=== PATIENT | female | born 1970 | race Hispanic/Latino ===

== ENCOUNTER → 2018-04-18 | Outpatient (CLI) | payer OTHER ==
--- NOTE | 2018-04-18 16:18 | Diagnostic Imaging Report ---
EXAM: Renal Ultrasound and ultrasound of pelvis Limited INDICATION: HEMATURIA /RECURRENT UTIS COMPARISON: None TECHNIQUE: Transverse and longitudinal images of the kidneys and bladder were obtained. FINDINGS: Right Kidney: Length: 11.0 cm Appearance: Normal echogenicity. Collecting system: No hydronephrosis Stones: None Cyst/Mass: None Left Kidney: Length: 11.1 cm Appearance: Normal echogenicity. Collecting system: No hydronephrosis Stones: None Cyst/Mass: None Bladder: Unremarkable. Urinary bladder wall thickness estimated at 5 mm. Bilateral jets observed. No post void residual. Incidental note is made of increased echogenicity of the hepatic parenchyma suggestive of steatosis. IMPRESSION: Normal ultrasound of the kidneys and urinary bladder. Hepatic steatosis. Signed by: Dr. Rashad Mcdaniel M.D. on 04/18/2018 4:14 PM
== END ==
LOC: US 15:21
PROVIDERS: ATTEND Internal Medicine
DX: N39.0 Urinary tract infection, site not specified (principal); R31.9 Hematuria, unspecified; K76.0 Fatty (change of) liver, not elsewhere classified
CPT/HCPCS: 76770; 76857

== ENCOUNTER → 2018-06-10 | Outpatient (CLI) | payer OTHER | LOC: MAMMO 14:27 | PROVIDERS: ATTEND Internal Medicine | DX: Z12.31 Encounter for screening mammogram for malignant neoplasm of breast (principal) | CPT/HCPCS: 77067 ==

== ENCOUNTER → 2018-07-29 | Outpatient (CLI) | payer OTHER ==
--- NOTE | 2018-07-29 17:22 | Diagnostic Imaging Report ---
Exam: Left knee 3 views History: Pain Comparison: None. Findings: No fracture or malalignment. Joint spaces preserved. No abnormal soft tissue calcification or soft tissue defect. Impression: No acute osseous abnormality Signed by: Dr. Jeferson Tang M.D. on 07/29/2018 5:18 PM
== END ==
LOC: RAD 16:36
PROVIDERS: ATTEND Internal Medicine
DX: M17.12 Unilateral primary osteoarthritis, left knee (principal)

== ENCOUNTER → 2019-06-11 | Outpatient (CLI) | payer OTHER ==
--- NOTE | 2019-06-19 08:49 | Diagnostic Imaging Report ---
#[id number] - MGSCRBIL #BILATERAL DIGITAL SCREENING MAMMOGRAM WITH CAD: 06/11/2019 CLINICAL: Routine screening. Comparison is made to exam dated: 06/10/2018 mammogram - [facility]. Current study contains 7 films. The tissue of both breasts is heterogeneously dense. This may lower the sensitivity of mammography. Current study was also evaluated with a Computer Aided Detection (CAD) system. Benign appearing microcalcifications, left breast. No significant masses, calcifications, or other findings are seen in either breast. IMPRESSION: BENIGN There is no mammographic evidence of malignancy. A 1 year screening mammogram is recommended. The patient will be notified by letter of the results. HERNÁN MENDOZA M.D. ct/penrad:06/18/2019 13:10:28 Reliability Technician: Ghazal WETZEL)(Marianna), [facility] letter sent: Normal Exam Mammogram BI-RADS: 2 Benign
== END ==
LOC: MAMMO 08:47
PROVIDERS: ATTEND Obstetrics & Gynecology
DX: Z12.31 Encounter for screening mammogram for malignant neoplasm of breast (principal)
CPT/HCPCS: 77067

== ENCOUNTER → 2020-01-04 | Outpatient (CLI) | payer OTHER ==
--- NOTE | 2020-01-04 16:50 | Diagnostic Imaging Report ---
Chest, PA and lateral. History: Hypertension. Comparison: None available. Discussion: The cardiomediastinal silhouette and pulmonary vasculature are within normal limits. The lungs are clear without evidence of consolidation or effusion. There are no acute osseous abnormalities. IMPRESSION: No radiographic evidence of acute cardiopulmonary abnormality. Signed by: Christian Young MD on 01/04/2020 4:47 PM
== END ==
LOC: RAD 16:10
PROVIDERS: ATTEND Internal Medicine
DX: I10 Essential (primary) hypertension (principal)
CPT/HCPCS: 71046

== ENCOUNTER 2020-04-03 12:01 | Emergency (ER) | payer OTHER ==
[~2020-04-03] VITALS: Ht 180.3 cm; Wt 88.0 kg
--- OUTSIDE RECORDS SUMMARY | 2020-04-03 12:04 | XMS REPORT ---
Author Author [facility] t Organization [facility] Address [address] [place] [id number] Phone Unavailable Care Team Providers Care Criminal Judge Name Role Phone ARASH CHAPA Attphys Unavailable BILLIE GAMBINO Attphys Unavailable Problems Condition Name Condition Details Condition Category Status Onset Date Resolution Date Last Treatment Date Treating Clinician Comments Source Influenza vaccination declined by patient Influenza va ccination declined by patient Disease Active 2016-08-16 00:00:00 [facility] Impaired fasting blood sugar Impaired fasting blood sugar Disease Active 2016-05-09 00:00:00 [facility] Fatty liver Fatty liver Disease Active 2014-06-22 00:00:00 [facility] GERD (gastroesophageal reflux disease) GERD (gastroesophagea l reflux disease) Disease Active 2014-06-22 00:00:00 [facility] Diverticulosis Diverticulosis Disease Active 2014-06-22 00:00:00 [facility] Essential hypertension Essential hypertension Disease Active 2008-11-16 00:00:00 [facility] Allergies, Adverse Reactions, Alerts Allergy Name Allergy Type Status Severity Reaction(s) Onset Date Inacti ve Date Treating Clinician Comments Source Nitrofurantoin Propensity to adverse reactions to drug Active 2014-05-27 00:00:[address] [facility] Captopril Propensity to adverse reactions to drug Active Cough 2008-11-16 00:00:00 [facility] Penicillins Propensity to adverse reactions to drug Active Rash 2007-06-17 00:00:00 [facility] Family History Family Member Diagnosis Comments Start Date Stop Date Source Natural father Hypertension [facility] Social History Social Habit Start Date Stop Date Quantity Comments Source Sex Assigned At [facility] Alcohol intake 2019-04-08 00:00:00 2019-04-08 00:00:00 [facility] History SDOH Food Worry 2017-04-17 00:00:00 2017-04-17 00:00:[address] [facility] History SDOH Food Scarcity 2017-04-17 00:00:00 2017-04-17 00:00:[address] [facility] Smoking Status Start Date Stop Date Source Never smoker [facility] Medications Ordered Medication Name Filled Medication Name Start Date Stop Da te Current Medication? Ordering Clinician Indication Dosage Frequency Signature (SIG) Comments Components Source fluconazole (DIFLUCAN) 150 mg tablet 2017-08-01 00:00:00 Yes Dysuria 150mg Take 1 tablet by mouth weekly. [facility] nystatin (MYCOSTATIN) 100,000 unit/gram ointment 2017-08-01 00:00:00 Yes Dysuria Q.5D Apply to affected area [address] [facility] losartan (COZAAR) 25 mg tablet 2017-06-12 00:00:00 Yes Essential hypertension with goal blood pressure less than 140/90 25mg QD Take 1 tablet by mouth daily. [facility] metoprolol tartrate (LOPRESSOR) 25 mg tablet 2017-06-12 00:0 0:00 Yes Essential hypertension with goal blood pressure less than 140/90 25mg Q.5D Take 1 tablet by mouth [address] [facility] Procedures This patient has no known procedures. Plan of Care Planned Activity Planned Date Details Comments Source Future Scheduled Test 2020-05-16 00:00:00 Cervical Cancer Sc rn (3 Yrs) [code = Cervical Cancer Scrn (3 Yrs)] [facility] Future Scheduled Test 2017-09-26 00:00:00 Breast Cancer Scrn (Yearly) [code = Breast Cancer Scrn (Yearly)] [facility] Encounters Start Date/Time End Date/Time Encounter Type Admission Type [facility] Facility Care Department Encounter ID Source 2017-11-06 00:00:00 2017-11-06 00:00:00 Outpatient [facility] [id number] [facility] 2017-08-20 00:00:00 2017-08-20 00:00:00 Outpatient [facility] [id number] [facility] 2017-08-01 15:46:47 2017-08-01 15:46:47 Outpatient [facility] [id number] [facility] 2017-06-12 08:25:05 2017-06-12 08:25:05 Outpatient [facility] [id number] [facility] 2017-05-16 14:58:34 2017-05-16 14:58:34 Outpatient [facility] [id number] [facility] 2017-05-03 08:51:48 2017-05-03 08:51:48 Outpatient [facility] [id number] [facility] 2017-05-02 00:00:00 2017-05-02 00:00:00 Outpatient [facility] [id number] [facility] 2017-04-23 00:00:00 2017-04-23 00:00:00 Outpatient [facility] [id number] [facility] 2017-04-17 14:00:06 2017-04-17 14:00:06 Outpatient [facility] [id number] [facility] Results Test Description Test Time Test Comments Results Result Comments Source CHEST 2 VIEWS 2020-01-04 16:47:00 [place] [address] Patient Name: SULTANA ADAMS MR #: [id number] : 1970 Age/Sex: 49/F Req #: [id number] Adm Physician: Ordered by: ARASH CHAPA MD Report #: [id number] Location: [facility] Room/Bed: Procedure: [id number] DX/CHEST 2 VIEWS Exam Date: 01/04/20 Exam Time: 1636 REPORT STATUS: Signed Chest, PA and lateral. History: Hypertension. Comparison: None available. Discussion: The cardiomediastinal silhouette and pulmonary vasculature are within normal limits. The lungs are clear without evidence of consolidation or effusion. There are no acute osseous abnormalities. IMPRESSION: No radiographic evidence of acute cardiopulmonary abnormality. Signed by: Christian Balbuena MD on 01/04/2020 4:47 PM Dictated By: CHRISTIAN BALBUENA MD Transcribed By: MILLIE on 01/04/201646 COPY TO: ARASH CHAPA MD MAMMOGRAPHY DIGITAL SCR BILAT 2019-06-11 09:14:00 [facility] [address] [place] [address] Patient Name: SULTANA ADAMS MR #: [id number] : 1970 Age/Sex: 48/F Req #: [id number] Adm Physician: Ordered by: JANNIE GAMBINO MD Report #: [id number] Location: MAMMO Room/Bed: Procedure: [id number] MG/MAMMOGRAPHY DIGITAL SCR BILAT Exam Date: 06/11/19 Exam Time: 906 REPORT STATUS: Signed #[id number] - MGSCRBIL #BILATERAL DIGITAL SCREENING MAMMOGRAM WITH CAD: 06/11/2019 CLINICAL: Routine screening. Comparison is made to exam dated: 06/10/2018 mammogram - [facility]. Current study contains 7 films. The tissue of both breasts is heterogeneously dense. This may lower the sensitivity of mammography. Current study was also evaluated with a Computer Aided Detection (CAD) system. Benign appearing microcalcifications, left breast. No significant masses, calcifications, or other findings are seen in either breast. IMPRESSION: BENIGN There is no mammographic evidence of malignancy. A 1 year screening mammogram is recommended. The patient will be notified by letter of the results. HERNÁN MENDOZA M.D. ct/penrad:06/18/2019 13:10:28 Oreman: Ghazal WETZEL)(Marianna), [facility] letter sent: Normal Exam Mammogram BI-RADS: 2 Benign Dictated By: HERNÁN MENDOZA MD 1310 Transcribed By: JUAN on 06/18/191309 COPY TO: BILLIE GAMBINO MD KNEE LEFT THREE VIEWS 2018-07-29 17:18:00 [place] [address] Patient Name: SULTANA ADAMS MR #: [id number] : 1970 Age/Sex: 47/F Req #: [id number] Adm Physician: Ordered by: ARASH CHAPA MD Report #: [id number] Location: RAD Room/Bed: Procedure: [id number] DX/KNEE LEFT THREE VIEWS Exam Date: Exam Time: REPORT STATUS: Signed Exam: Left knee 3 views History: Pain Comparison: None. Findings: No fracture or malalignment. Joint spaces preserved. No abnormal soft tissue calcification or soft tissue defect. Impression: No acute osseous abnormality Signed by: Dr. Teddy Ta M.D. on 07/29/2018 5:18 PM Dictated By: TEDDY TA MD 17 Transcribed By: MILLIE on 07/29/181717 COPY TO: ARASH CHAPA MD MAMMOGRAPHY DIGITAL SCR BILAT 2018-06-10 15:44:00 [place] [address] Patient Name: SULTANA ADAMS MR #: [id number] : 1970 Age/Sex: 47/F Req #: [id number] Adm Physician: Ordered by: ARASH CHAPA MD Report #: [id number] Location: MAMMO Room/Bed: Procedure: MG/MAMMOGRAPHY DIGITAL SCR BILAT Exam Date: 06/10/18 Exam Time: 1515 REPORT STATUS: Signed #[id number] - MGSCRBIL #BILATERAL DIGITAL SCREENING MAMMOGRAM WITH CAD: 06/10/2018 CLINICAL: Routine screening. No prior exams were available for comparison. Current study contains 5 films. The tissue of both breasts is heterogeneously dense. This may lower the sensitivity of mammography. Current study was also evaluated with a Computer Aided Detection (CAD) system. There is a benign calcification in the left breast. No significant masses, calcifications, or other findings are seen in either breast. IMPRESSION: BENIGN There is no mammographic evidence of malignancy. A 1 year screening mammogram is recommended. The patient will be notified by letter of the results. Dhruv cortés/juan:06/23/2018 11:51:05 Oreman: Ghazal BARRON(R)(M), [facility] letter sent: Normal Exam Mammogram BI-RADS: 2 Benign Dictated By: DHRUV HOSKINS DO 1151 Transcribed By: JUAN on 06/23/18 1151 COPY TO: ARASH CHAPA MD PELVIC (NON OB) HUGHES OR F/U 2018-04-18 16:11:00 [place] [address] Patient Name: SULTANA ADAMS MR #: [id number] : 1970 Age/Sex: 47/F Req #: [id number] Adm Physician: Ordered by: ARASH CHAPA MD Report #: [id number] Location: US Room/Bed: Procedure: [id number] US/US PELVIC (NON OB) HUGHES OR F/U Exam Date: Exam Time: REPORT STATUS: Signed EXAM: Renal Ultrasound and ultrasound of pelvis Limited INDICATION: HEMATURIA /RECURRENT UTIS COMPARISON: None TECHNIQUE: Transverse and longitudinal images of the kidneys and bladder were obtained. FINDINGS: Right Kidney: Length: 11.0 cm Appearance: Normal echogenicity. Collecting system: No hydronephrosis Stones: None Cyst/Mass: None Left Kidney: Length: 11.1 cm Appearance: Normal echogenicity. Collecting system: No hydronephrosis Stones: None Cyst/Mass: None Bladder: Unremarkable. Urinary bladder wall thickness estimated at 5 mm. Bilateral jets observed. No post void residual. Incidental note is made of increased echogenicity of the hepatic parenchyma suggestive of steatosis. IMPRESSION: Normal ultrasound of the kidneys and urinary bladder. Hepatic steatosis. Signed by: Dr. Rashad Sanabria M.D. on 04/18/2018 4:14 PM Dictated By: DEMETRICE SANABRIA MD, MD 13 Transcribed By: MILLIE on 04/18/181613 COPY TO: ARASH CHAPA MD RENAL RETROPERITONEAL COMP 2018-04-18 16:11:00 [place] [address] Patient Name: SULTANA ADAMS MR #: [id number] : 1970 Age/Sex: 47/F Req #: [id number] Adm Physician: Ordered by: ARASH CHAPA MD Report #: [id number] Location: US Room/Bed: Procedure: [id number] US/US RENAL RETROPERITONEAL COMP Exam Date: Exam Time: REPORT STATUS: Signed EXAM: Renal Ultrasound and ultrasound of pelvis Limited INDICATION: HEMATURIA /RECURRENT UTIS COMPARISON: None TECHNIQUE: Transverse and longitudinal images of the kidneys and bladder were obtained. FINDINGS: Right Kidney: Length: 11.0 cm Appearance: Normal echogenicity. Collecting system: No hydronephrosis Stones: None Cyst/Mass: None Left Kidney: Length: 11.1 cm Appearance: Normal echogenicity. Collecting system: No hydronephrosis Stones: None Cyst/Mass: None Bladder: Unremarkable. Urinary bladder wall thickness estimated at 5 mm. Bilateral jets observed. No post void residual. Incidental note is made of increased echogenicity of the hepatic parenchyma suggestive of steatosis. IMPRESSION: Normal ultrasound of the kidneys and urinary bladder. Hepatic steatosis. Signed by: Dr. Rashad Sanabria M.D. on 04/18/2018 4:14 PM Dictated By: DEMETRICE SANABRIA MD, MD 2787 Transcribed By: MILLIE on 04/18/182 COPY TO: ARASH CHAPA MD
--- OUTSIDE RECORDS SUMMARY | 2020-04-03 12:04 | XMS REPORT | Clinical Summary ---
Author Author [facility] Organization [facility] Address Unknown Phone Unavailable Care Team Providers Care Hot Water Heater Installer Name Role Phone PCP Unavailable Allergies Comments Active Allergy Reactions Severity Noted Date Captopril Cough Medium 11/16/2008 Chest pain Nitrofurantoin 05/27/2014 Penicillins Rash Low 06/17/2007 Medications End Date Status Medication Sig Dispensed Refills Start Date Active losartan (COZAAR) 25 mg Take 1 tablet 90 tablet 1 tabletIndications: by mouth 7 Essential hypertension daily. with goal blood pressure less than 140/90 Active metoprolol tartrate Take 1 tablet 180 tablet 1 (LOPRESSOR) 25 mg by mouth 2 7 tabletIndications: times daily. Essential hypertension with goal blood pressure less than 140/90 Active fluconazole (DIFLUCAN) Take 1 tablet 2 tablet 0 0 150 mg tabletIndications: by mouth 7 Dysuria weekly. Active nystatin (MYCOSTATIN) Apply to 30 g 0 07/06 100,000 unit/gram affected area 7 ointmentIndications: 2 times Dysuria daily. Active Problems Problem Noted Date Influenza vaccination declined by patient 08/16/2016 Impaired fasting blood sugar 05/09/2016 Fatty liver 06/22/2014 GERD (gastroesophageal reflux disease) 06/22/2014 Diverticulosis 06/22/2014 Essential hypertension 11/16/2008 Immunizations Name Administration Dates Next Due Influenza Vaccine 11/30/2016 (Deferred: Sergoi nt Refused) Tdap Tetanus, diphtheria, 06/26/2013 (Deferred: Tere ent Refused) acellular pertussis Vaccine Family History Medical History Relation Name Comments Hypertension Father Relation Name Status Comments Brother Alive Father Alive Maternal Grandfather Maternal Grandmother Mother Alive Paternal Grandfather Paternal Grandmother Sister Alive x2 Social History Date Tobacco Use Types Packs/Day Years Used Never Smoker Smokeless Tobacco: Never Used Tobacco Cessation: Counseling Given: No Drinks/Week oz/Week Comments Alcohol Use No Food Insecurity Answer Date Recorded Within the past 12 months, you worried that your Never kaila e 04/17/2017 food would run out before you got money to buy more. Within the past 12 months, the food you bought Never true 04/17/2017 just didn't last and you didn't have mo nikhil to get more. Sex Assigned at Date Recorded Not on file Industry Job Start Date Occupation Not on file Not on file Not on file Travel End Travel History Travel Start No recent travel history available. Last Filed Vital Signs Not on file Plan of Treatment Health Maintenance Due Date Last Done Comments Breast Cancer Scrn 09/26/2017 09/26/2016, 015, 07/22/2014, (Yearly) Additional history exists Cervical Cancer Scrn (3 05/16/2020 05/16/2017, , 02/05/2013 Yrs) Goals Goal Patient Associated Recent Progress Patient-Stat Aut hor Goal Type Problems ed? Decrease soda or juice intake Diet No Arelis Hoskins LD Reduce sugar intake Diet No Arelis Hoskins LD Have 3 meals a day Diet No Arelis Hoskins LD Note: Eat 3 well balanced, portion controlled meals including all food groups daily Increase physical activity Lifestyle No Arelis Cruz se, LD Results Not on fileafter 04/03/2019 Insurance Type Payer Benefit Subscriber ID Effective Phone Address Plan / Dates Group NXTMPLACE VEGA xxxxxxxxxx 2015-P [phone] [facility] [address] [place] [address] [facility] SELF-PAY SELF-PAY xxxxx 2018- [phone] [id number] [place] [address] Guarantor Name Account Relation to Date of Phone Tono azul Address Type Patient BRYAN GIRALDOAULISESO Personal/F Head of 06/30/1966 [address] [facility] (Home) [place], [place] [address] (Self)
[2020-04-03] MEDS ORDERED: DONNATAL/LIDOCAINE/MAALOX 30 ML SUSP PO ONE (12:30)
--- NOTE | 2020-04-03 12:39 | Emergency Department Note ---
History of Present Illnes History of Present Illness Chief Complaint: Abdominal Complaints History of Present Illness This is a 49 year old female . Arrival Mode: Car Additional Treatment ASH COLLECTOR: omeprazole History limited by: language barrier Top Spotter Required: Yes Onset (how long ago): day(s) (1) Location: epigastric Quality: pressure like Radiation: non-radiation Severity: moderate Onset quality: gradual Timing of current episode: intermittent Progression: worsening Chronicity: new Relieving factors: none Exacerbating factors: none Associated symptoms: denies other symptoms Treatments prior to arrival: other (prilosec and antacids with some relief) Risk factors: htn diabetes Past Medical/Family History Physician Review I have reviewed the patient's past medical and family history. Any updates have been documented here. Past Medical History Recent Fever: No Clinical Suspicion of Infectio: No New/Unexplained Change in Ment: No Past Medical History: Hypertension, Diabetes, Hypothyroidism Other Medical History: GERD Past Surgical History: (times 3) Social History Smoking Cessation: Never Smoker Alcohol Use: Occasional Any Illegal Drug Use: No TB Exposure/Symptoms: No Physically hurt or threatened: No Other Any Pre-Existing Lines (PICC,: No Is patient up to date on immun: No Review of Systems Review of Systems Constitutional: no symptoms EENTM: no symptoms Cardiovascular: no symptoms Respiratory: no symptoms Gastrointestinal: as per HPI, other (denies black or bloody stools) Genitourinary: no symptoms Musculoskeletal: no symptoms Neurological: no symptoms Psychological: no symptoms Endocrine: no symptoms Hematological/Lymphatic: no symptoms Review of other systems All other systems reviewed and negative. Physical Exam Related Data Allergies: Coded Allergies: Penicillins (Verified Allergy, Intermediate, rash/hives, 04/03/20) Vital signs reviewed: Yes Physical Exam CONSTITUTIONAL Constitutional: well-developed, well-nourished, obese HENT HENT: normocephalic, atraumatic EYES Eyes: PERRL, conjunctivae normal, EOM normal NECK Neck: ROM normal, supple PULMONARY Pulmonary: effort normal, breath sounds normal CARDIOVASCULAR Cardiovascular: regular rhythm, heart sounds normal, capillary refill normal, tachycardia GASTROINTESTINAL Abdominal: soft, tender (epigastric area) GENITOURINARY Genitourinary: exam deferred SKIN Skin: warm, dry, erythema MUSCULOSKELETAL Musculoskeletal: ROM normal, edema NEUROLOGICAL Neurological: alert, oriented x 3, DTRs normal, no gross motor or sensory defi cits PSYCHOLOGICAL Psychological: mood/affect normal, behavior normal, thought content normal, judgement normal Results Laboratory Laboratory glucose 186 cardiac markeers WNL. CBC WNL. Preg Neg and UA trace blood ow wnl Lab results reviewed: Yes Diagnostics Tests Diagnostic test(s) reviewed: Yes Diagnostic comments ekg sinus tach 108 t waves inverted in inferior leads and V2 V3 Critical Care Time Subsequent provider I assumed direction of critical care for this patient from another provider of my specialty. Assessment & Plan Reassessment Reassessment time: 13:05 (feeling better after GI cocktail. Heartrate has decreased to 95/minute. pt admits to being a little nervious in the ED. Translation from colombian to indonesian by me Dr. Bazzi) Reassessment pt admits to being non compliant with her omeprazole . explained need tp take daily as prescribed. all epigastric pain resolved at 1:12 PM Assessment & Plan Final Impression: (1) GASTRO-ESOPHAGEAL REFLUX DISEASE WITHOUT ESOPHAGITIS Assessment & Plan take medications as prescribed and follow with your doctor in 48 hours return for any further problems Depart Disposition: HOME, SELF-CARE Medications in the ED gi cocktail LENI BAZZI MD April 03, 2020 12:39
[2020-04-03] MEDS ORDERED: LIDOCAINE VISC 2% SOLN 15 ML UDC ONE (12:52)
[2020-04-03] MEDS ORDERED: BELLADONNA ALK/PHENOBARBITAL 5 ML UDC ONE (12:52)
[2020-04-03] MEDS ORDERED: MAGNESIUM/ALUMINUM/SIMETHICONE 30 ML UDC ONE (12:53)
[2020-04-03] MEDS ORDERED: METOPROLOL SUCC50 MG PO (13:36)
[2020-04-03] MEDS ORDERED: LEVOTHYROXINE50 MCG PO (13:36)
[2020-04-03] MEDS ORDERED: METFORMIN HCL1000 MG (13:36)
[2020-04-03] MEDS ORDERED: SIMVASTATIN20 MG PO (13:36)
[2020-04-03] MEDS ORDERED: LOSARTAN POTASS25 MG (13:36)
[2020-04-03] MEDS ORDERED: OMEPRAZOLE40 MG (13:36)
[2020-04-03 13:44] VITALS: BP 164/91
--- NOTE | 2020-04-03 13:46 | NUR ---
cultural link optical technician # [id number] used for triage [facility] optical technician # [id number] used for discharge
== END 2020-04-03 13:43 | disposition home or self-care (01) ==
LOC: FSED 12:01
DX: R10.13 Epigastric pain (principal); R14.2 Eructation; K21.9 Gastro-esophageal reflux disease without esophagitis; I10 Essential (primary) hypertension; E11.9 Type 2 diabetes mellitus without complications; E03.9 Hypothyroidism, unspecified
CPT/HCPCS: 80048; 80076; 81003; 81025; 82553; 84484; 85025; 93005; 99283

== ENCOUNTER 2021-05-24 18:47 | Emergency (ER) | payer OTHER ==
[~2021-05-24] VITALS: Ht 180.3 cm; Wt 88.0 kg
[~2021-05-24 18:47] MED LIST: LEVOTHYROXINE50 MCG PO; LOSARTAN POTASS25 MG; METFORMIN HCL1000 MG; METOPROLOL SUCC50 MG PO; OMEPRAZOLE40 MG; SIMVASTATIN20 MG PO
== END 2021-05-24 20:30 | disposition home or self-care (01) ==
LOC: FSED 20:29
DX: R07.89 Other chest pain (principal); R00.2 Palpitations; I10 Essential (primary) hypertension; E11.65 Type 2 diabetes mellitus with hyperglycemia; E03.9 Hypothyroidism, unspecified; F41.9 Anxiety disorder, unspecified; K21.9 Gastro-esophageal reflux disease without esophagitis
CPT/HCPCS: 71046; 80053; 82553; 84484; 85025; 99283

== ENCOUNTER 2021-10-07 21:30 | Emergency (ER) | payer OTHER ==
[~2021-10-07] VITALS: Ht 162.6 cm; Wt 89.8 kg
[2021-10-07] MEDS ORDERED: KETOROLAC TROMETHAMINE 30 MG/ML VIAL IV STA (22:40)
[2021-10-07] MEDS ORDERED: FAMOTIDINE 20 MG/2 ML VIAL IV STA (22:40)
[2021-10-07] MEDS ORDERED: SODIUM CHLORIDE 0.9% 1000ML 1,000 ML IV SCH (22:45)
[2021-10-07] MEDS ORDERED: KETOROLAC TROMETHAMINE 30 MG/ML VIAL ONE (22:57)
[2021-10-07] MEDS ORDERED: SODIUM CHLORIDE 0.9% 1000ML 1,000 ML ONE (22:58)
[2021-10-07] MEDS ORDERED: FAMOTIDINE 20 MG/2 ML VIAL IV ONE (22:58)
[2021-10-07] MEDS ORDERED: SODIUM CHLORIDE 0.9% 50ML 50 ML ONE (23:06)
[2021-10-07] MEDS ORDERED: IOPAMIDOL 370 MG/ML 200 ML INFUS..BTL INJ ONE (23:06)
[2021-10-08 00:08] VITALS: BP 150/92
== END 2021-10-08 00:08 | disposition home or self-care (01) ==
LOC: FSED 21:52
DX: R10.11 Right upper quadrant pain (principal); K21.9 Gastro-esophageal reflux disease without esophagitis; E03.9 Hypothyroidism, unspecified; I10 Essential (primary) hypertension; E11.65 Type 2 diabetes mellitus with hyperglycemia; F41.9 Anxiety disorder, unspecified; R16.0 Hepatomegaly, not elsewhere classified; K76.0 Fatty (change of) liver, not elsewhere classified
CPT/HCPCS: 74177; 80048; 80076; 81003; 81025; 85025; 96374; 96376; 99284; J1885; J7030; Q9967

== ENCOUNTER 2021-11-01 21:19 | Emergency (ER) | payer OTHER ==
[~2021-11-01] VITALS: Ht 162.6 cm; Wt 89.8 kg
[2021-11-01] MEDS ORDERED: KETOROLAC TROMETHAMINE 30 MG/ML VIAL IV STA (21:49)
[2021-11-01] MEDS ORDERED: ACETAMINOPHEN 325 MG TAB PO ONE (22:00)
[2021-11-01] MEDS ORDERED: IOPAMIDOL 370 MG/ML 200 ML INFUS..BTL INJ ONE (22:26)
[2021-11-01] MEDS ORDERED: SODIUM CHLORIDE 0.9% 50ML 50 ML ONE (22:26)
[2021-11-01] MEDS ORDERED: ACETAMINOPHEN 325 MG TAB ONE (22:34)
[2021-11-01] MEDS ORDERED: KETOROLAC TROMETHAMINE 30 MG/ML VIAL ONE (22:35)
[2021-11-01] MEDS ORDERED: DICYCLOMINE HCL20 MG PO (23:35)
[2021-11-01 23:53] VITALS: BP 152/95
== END 2021-11-01 23:53 | disposition home or self-care (01) ==
LOC: FSED 21:22
DX: R10.31 Right lower quadrant pain (principal); R11.0 Nausea; I10 Essential (primary) hypertension; E11.9 Type 2 diabetes mellitus without complications; E03.9 Hypothyroidism, unspecified; F41.9 Anxiety disorder, unspecified; K21.9 Gastro-esophageal reflux disease without esophagitis
CPT/HCPCS: 74177; 99283; J1885; Q9967

== ENCOUNTER 2022-07-25 03:49 | Emergency (ER) | payer OTHER ==
[~2022-07-25] VITALS: Ht 162.6 cm; Wt 85.7 kg
[~2022-07-25 03:49] MED LIST changes: +DICYCLOMINE HCL20 MG PO
[2022-07-25] MEDS ORDERED: CORTISPORIN-TC10 M1 LEFT EAR (04:36)
[2022-07-25] MEDS ORDERED: CEFDINIR300 MG PO (04:36)
== END 2022-07-25 05:53 | disposition home or self-care (01) ==
LOC: FSED 04:07
DX: H66.92 Otitis media, unspecified, left ear (principal); I10 Essential (primary) hypertension; E11.9 Type 2 diabetes mellitus without complications; E03.9 Hypothyroidism, unspecified; K21.9 Gastro-esophageal reflux disease without esophagitis; F41.9 Anxiety disorder, unspecified
CPT/HCPCS: 93005; 99283

== ENCOUNTER 2023-04-01 13:53 | Emergency (ER) | payer OTHER ==
[~2023-04-01] VITALS: Ht 162.6 cm; Wt 85.7 kg
[~2023-04-01 13:53] MED LIST changes: +CEFDINIR300 MG PO; +CORTISPORIN-TC10 M1 LEFT EAR
[2023-04-01 13:55] VITALS: O2SAT 100
[2023-04-01 14:22] LABS: BASOPHILS % 0.5 % (0.0-1.0); EOSINOPHILS # (AUTO) 0.1 (0.0-0.4); EOSINOPHILS % 1.5 % (0.0-6.0); HEMATOCRIT 45.2 % (34.2-44.1); HEMOGLOBIN 15.1 g/dL (12.0-16.0); LYMPHOCYTES # (AUTO) 2.4 (1.0-3.2); LYMPHOCYTES % 31.9 % (18.0-39.1); MEAN CORPUSCULAR HEMOGLOBIN 29.8 pg (28-32); MEAN CORPUSCULAR HGB CONC 33.4 g/dL (31-35); MEAN CORPUSCULAR VOLUME 89.2 fL (81-99); MONOCYTES # (AUTO) 0.6 (0.2-0.8); MONOCYTES % 8.5 % (4.4-11.3); NEUTROPHILS # (AUTO) 4.4 (2.1-6.9); NEUTROPHILS % 57.5 % (38.7-80.0); PLATELET COUNT 219 x10e3/uL (140-360); RED BLOOD COUNT 5.07 x10e6/uL (3.6-5.1)
[2023-04-01 14:47] LABS: ALANINE AMINOTRANSFERASE 41 IU/L (0-55); ALBUMIN 3.9 g/dL (3.5-5.0); ALKALINE PHOSPHATASE 84 IU/L (40-150); ANION GAP 13.3 mmol/L (8-16); BLOOD UREA NITROGEN 17 mg/dL (7-26); BUN/CREATININE RATIO 23 (6-25); CALCIUM 9.4 mg/dL (8.4-10.2); CARBON DIOXIDE 25 mmol/L (22-29); CHLORIDE 106 mmol/L (98-107); CREATINE KINASE 82 IU/L (29-168); CREATININE, SERUM 0.75 mg/dL (0.57-1.11); GLUCOSE 136 mg/dL (74-118); POTASSIUM 4.3 mmol/L (3.5-5.1); SODIUM 140 mmol/L (136-145)
== END 2023-04-01 17:11 | disposition home or self-care (01) ==
LOC: ER 13:57
DX: I10 Essential (primary) hypertension (principal); E11.65 Type 2 diabetes mellitus with hyperglycemia; E03.9 Hypothyroidism, unspecified; K21.9 Gastro-esophageal reflux disease without esophagitis; F41.9 Anxiety disorder, unspecified; R20.2 Paresthesia of skin
CPT/HCPCS: 36415; 71045; 80053; 82550; 82553; 84484; 85025; 93005; 99284

== ENCOUNTER 2024-07-20 13:39 | Emergency (ER) | payer OTHER ==
[~2024-07-20] VITALS: Ht 162.6 cm; Wt 86.8 kg
[~2024-07-20 13:39] MED LIST changes: +BUSPIRONE HCL5 MG PO; +CRESTOR10 MG PO; +IBUPROFEN600 MG PO; -METFORMIN HCL1000 MG; +METFORMIN HCL1000 MG PO; +METHOCARBAMOL500 MG PO
[2024-07-20] MEDS ORDERED: AMLODIPINE BESYL5 MG PO (14:30)
[2024-07-20 16:46] VITALS: PULSE 72; RESP 16; O2SAT 98
[2024-07-20 16:51] VITALS: TEMP 98.5
== END 2024-07-20 16:52 | disposition home or self-care (01) ==
LOC: FSED 13:45
DX: R20.2 Paresthesia of skin (principal); F41.9 Anxiety disorder, unspecified; R51.9 Headache, unspecified; E11.65 Type 2 diabetes mellitus with hyperglycemia; I10 Essential (primary) hypertension; E03.9 Hypothyroidism, unspecified; K21.9 Gastro-esophageal reflux disease without esophagitis
CPT/HCPCS: 70450; 80048; 80076; 80307; 81003; 82553; 83880; 84484; 85025; 85610; 93005; 99284

== ENCOUNTER 2025-03-20 04:52 | Emergency (ER) | payer OTHER ==
[~2025-03-20] VITALS: Ht 162.6 cm; Wt 83.5 kg
[~2025-03-20 04:52] MED LIST changes: +AMLODIPINE BESYL5 MG PO
[2025-03-20 05:00] VITALS: PULSE 76; RESP 18; TEMP 97.5
[2025-03-20] MEDS: ASPIRIN 325 MG TAB PO ONE (05:47)
[2025-03-20] MEDS: FAMOTIDINE 20 MG/2 ML VIAL IV STA (05:47)
[2025-03-20 06:35] VITALS: BP 135/79; PULSE 60; RESP 18; TEMP 98; O2SAT 99
== END 2025-03-20 06:35 | disposition home or self-care (01) ==
LOC: FSED 04:55
DX: R20.2 Paresthesia of skin (principal); R07.89 Other chest pain; F41.9 Anxiety disorder, unspecified; I10 Essential (primary) hypertension; E11.65 Type 2 diabetes mellitus with hyperglycemia; E03.9 Hypothyroidism, unspecified; K21.9 Gastro-esophageal reflux disease without esophagitis; F32.A Depression, unspecified; R94.31 Abnormal electrocardiogram [ECG] [EKG]
CPT/HCPCS: 71045; 80053; 80307; 81003; 84484; 85025; 93005; 99284; J1308

== ENCOUNTER 2025-07-26 18:16 | Emergency (ER) | payer OTHER ==
[~2025-07-26] VITALS: Ht 162.6 cm; Wt 84.0 kg
[2025-07-26 18:33] VITALS: PULSE 83; RESP 20; TEMP 98.4
[2025-07-26] MEDS: SODIUM CHLORIDE 0.9% 1000ML 1,000 ML IV ONE (18:45)
[2025-07-26] MEDS ORDERED: IOPAMIDOL 370 MG/ML 100 ML INFUS..BTL INJ ONE (18:53)
[2025-07-26] MEDS ORDERED: CYCLOBENZAPRINE5 MG PO (20:44)
[2025-07-26] MEDS: KETOROLAC TROMETHAMINE 30 MG/ML VIAL IV STA (20:59)
[2025-07-26 21:06] VITALS: BP 158/80; PULSE 80; RESP 18; TEMP 98.2; O2SAT 98
== END 2025-07-26 21:05 | disposition home or self-care (01) ==
LOC: FSED 18:22
DX: R10.31 Right lower quadrant pain (principal); K76.0 Fatty (change of) liver, not elsewhere classified
CPT/HCPCS: 74177; 80053; 81003; 85025; 99284; J1885; J7030; Q9967